=== PATIENT | female | born 1970 | race Caucasian/White ===

== ENCOUNTER 2019-12-28 18:38 | Emergency (ER) | payer SELFPAY ==
[~2019-12-28 18:38] MED LIST: Iopamidol-370 76% 500 ML 1 ML ONE
[2019-12-28] MEDS ORDERED: Fentanyl 100 MCG/2 ML VIAL ONE (19:28)
--- NOTE | 2019-12-28 19:57 | ULT ---
ULTRASOUND ABDOMEN LIMITED: (RIGHT UPPER QUADRANT) DATE: 12/28/2019 HISTORY: 49-year-old female with right upper quadrant abdominal pain FINDINGS: Gallbladder: Normal wall thickness. No gallstones or sludge identified. No pericholecystic fluid. Liver: Normal parenchymal echogenicity. Right kidney: No hydronephrosis. 1 cm small hypoechoic lesion at right renal lower pole cortex, too s mall to characterize, probably a cyst. Pancreas: Visualized, with no gross sonographic abnormality identified (although ultrasound is relati vely insensitive for the detection of pancreatic pathology compared to CT and MRI.). Common duct caliber: 5 mm. IMPRESSION: No evidence of cholelithiasis or acute cholecystitis.
--- NOTE | 2019-12-28 20:42 | CT ---
CT OF THE ABDOMEN AND PELVIS WITH IV CONTRAST INDICATION: History of right-sided abdominal pain COMPARISON: Noncontrast CT the abdomen and pelvis dated May 15, 2011 and the right upper quadrant ul trasound dated December 28, 2019 FINDINGS: ABDOMEN: Lung bases: Clear Liver: No focal lesion. Gallbladder: Normal appearing. Pancreas: Normal. Adrenal glands: Stable small left adrenal adenoma measuring 9 mm. Right adrenal gland is normal-appea ring. Spleen: Normal. Kidneys and ureters: Small 8 mm cyst involving for pole of the right kidney. Left kidney is normal-ap pearing. No hydronephrosis is demonstrated. Vasculature: There are mild vascular calcifications seen involving the visualized vasculature. Lymph nodes:No lymphadenopathy. Free fluid in abdomen:No free fluid is evident. PELVIS: Small and large bowel: Normal Appendix:Normal Bladder: Normal. Rectal and perirectal soft tissues:Normal. Reproductive structures: There is a suspected 4.6 x 3.6 cm hypodense mass involving the right adnexa. There are numerous loops of unopacified bowel near this region slightly limiting the exam. Remaining visualized reproductive structures appear within normal limits. Free fluid in pelvis: No free fluid is evident. Lymphadenopathy pelvis: No lymphadenopathy is evident. Osseous structures: No acute osseous abnormality. No destructive osteolytic or osteoblastic lesion i s identified. There is scattered degenerative and osteoarthritic changes. Soft tissues:Normal. IMPRESSION: 1. 4.6 cm hypodense mass suspected involving the right adnexa. There are numerous loops of unopacifie d small bowel near this region slightly limiting the examination. A conglomeration of unopacified bowel loops could produce a pseudomass appearance. Pelvic ultrasound is recommended for confirmation and additional characterization. 2. Right renal cyst 3. Stable left adrenal adenoma
--- NOTE | 2019-12-28 22:50 | ULT ---
TRANSABDOMINAL TRANSVAGINAL PELVIC ULTRASOUND DATE:: 12/28/2019 9:57 PM CLINICAL HISTORY: Right-sided abdominal pain. COMPARISON: CT the abdomen and pelvis dated 2019 TECHNIQUE: Grayscale, color Doppler and spectral Doppler images were obtained of the pelvis see a tra nsabdominal and transvaginal approach FINDINGS: UTERUS: Size: 6.0 x 2.6 x 3.6 cm Mass: None Cervix: Not well seen Endometrial Thickness: 3.5 mm. OVARIES: Size: Right measures 2.7 x 1.0 cm; Left measures 2.7 x 1.8 x 1.3 cm Mass: There is a large complex cyst involving the right ovary with markedly thickened internal septat ions measuring 4.1 x 3.2 cm. There is a small simple cyst within the left ovary measuring 1 cm. Flow: Normal CUL-DE-SAC: Mild free fluid IMPRESSION: Large complex cyst involving the right ovary with prominent internal septations. Differential conside rations include a complex hemorrhagic cyst, ovarian abscess or possibly a complex cystic mass. Recommend correlation with the clinical examination. Follow-up MR the pelvis with and without contras t would be helpful for improved characterization. Simple cyst of the left ovary.
== END 2019-12-28 23:39 | disposition home or self-care (01) ==
LOC: ERS 18:38
DX: N83.201 Unspecified ovarian cyst, right side (principal); R11.0 Nausea; R10.811 Right upper quadrant abdominal tenderness; F41.9 Anxiety disorder, unspecified; F41.0 Panic disorder [episodic paroxysmal anxiety]; G43.909 Migraine, unspecified, not intractable, without status migrainosus; E78.5 Hyperlipidemia, unspecified; F17.210 Nicotine dependence, cigarettes, uncomplicated
CPT/HCPCS: 74177; 76705; 76856; 96361; 96372; 96374; J0500; J3010; Q9967